=== PATIENT | female | born 1950 | race Caucasian/White ===

== ENCOUNTER 2024-07-16 14:03 | Emergency (ER) | payer OTHER ==
[2024-07-16 14:10] VITALS: BP 160/72; PULSE 65; RESP 18; TEMP 98.2; BMI 28.0
[2024-07-16] MEDS ORDERED: ACETAMINOPHEN INJECTION 100 ML ONE (15:05)
[2024-07-16] MEDS: ACETAMINOPHEN 1000 MG/100 ML BAG IVPB ONE (15:09)
[2024-07-16 15:34] LABS: BASO % 0.6 % (0-2.0); EOS % 3.6 % (0-4.5); HEMOGLOBIN 13.6 GM/dL (10.7-15.3); LYMPH % 32.7 % (8-40); MCH 30.4 pg (25.7-33.7); MEAN CELL VOLUME 89.3 fl (80-96); MONO % 7.3 % (3.8-10.2); NEUT % 55.8 % (42.8-82.8); PLATELET COUNT 192 10^3/uL (134-434); RBC 4.48 M/mm3 (3.60-5.2); RDW 13.8 % (11.6-15.6); WHITE BLOOD COUNT 6.7 K/mm3 (4.0-10.0)
[2024-07-16 15:52] LABS: POTASSIUM 3.9 mmol/L (3.5-5.1)
[2024-07-16 15:54] LABS: CALCIUM 9.5 mg/dL (8.5-10.1)
[2024-07-16 15:55] LABS: ALBUMIN 4.2 g/dl (3.4-5.0); BLOOD UREA NITROGEN 13.8 mg/dL (7-18)
[2024-07-16 15:58] LABS: CREATININE 0.9 mg/dL (0.55-1.3)
[2024-07-16 15:59] LABS: BILIRUBIN,TOTAL 0.5 mg/dL (0.2-1); TOT PROT 7.6 g/dl (6.4-8.2)
== END 2024-07-16 19:14 | disposition home or self-care (01) ==
LOC: JER 14:03
PROC: 3E033NZ Introduction of Analgesics, Hypnotics, Sedatives into Peripheral Vein, Percutaneous Approach (ICD-10-PCS; principal; 2024-07-16)
DX: R10.11 Right upper quadrant pain (principal); K59.09 Other constipation
CPT/HCPCS: 36415; 71046-TC-FY; 74177-TC; 80053; 83690; 84484; 85025; 93005; 93010; 99285-25; J0131; Q9967